=== PATIENT | female | born 1995 | race Caucasian/White ===

== ENCOUNTER → 2016-12-23 | Outpatient (CLI) | payer BC ==
[~2016-12-23] MED LIST: AMOX500C2 PO; BIRTH CONTROL PO; CEPH500C PO; HYDR-3454 PO
--- OUTSIDE RECORDS SUMMARY | 2016-12-23 10:35 | XMS REPORT | Continuity of Care Document ---
Author Author [facility] Organization [facility] Address Unknown Phone Unavailable Care Team Providers Care Body Joiner Name Role Phone [place], [facility] PCP Insurance Providers Payer Name Policy Number Subscriber Name Relationship [facility] [id number] Cb Dorsey 18 Father Advance Directives Directive Response Recorded Date/Time Advance Directives No 11/14/14 6:43am Health Care Power of Professional Model No 11/14/14 6:43am Organ Donor Yes 11/14/14 6:43am Resuscitation Status Full Code 11/14/14 6:43am Problems No known problems or medical conditions. Medications Medication Dose Route Sig Days/Qty Instructions Order Date Discontinued Date Status Amoxicillin 2 Each PO TWICE A DAY 40 Qty 03/05/14 11/07/14 Discontinued [ Control] 1 Tab PO DAILY 11/07/14 11/14/14 Discontinued Cephalexin Monohydrate (Keflex) 1 Cap PO THREE TIMES A DAY 21 Qty 11/14 Active Hydrocodone Bit/Acetaminophen 1-2 Tab PO Q4-6HR PRN PAIN 30 Qty Active Social History Social History Problem Response Recorded Date/Time Alcohol Use Denies Use 03/04/2014 11:29pm Recreational Drug Use No 03/04/2014 11:29pm Recent Foreign Travel No 11/14/2014 6:43am Smoking Status Never a Smoker 11/14/2014 6:44am Query Response Start Date Stop Date Smoking Status Never a Smoker Hospital Discharge Instructions No hospital discharge instructions. Plan of Care No plan of care. Functional Status No functional status results. Allergies, Adverse Reactions, Alerts Allergen Type Severity Reaction Status Last Updated No Known Drug Allergies Active 03/05/14 Immunizations No immunization records. Vital Signs Acute Vital Signs Vital Response Date/Time Temperature (Fahrenheit) 98.4 degrees F (97.6 - 99.5) Temperature (Calculated Celsius) 36.30206 degrees C (36.4 - 37.5) Temperature Source Temporal Pulse Rate (adult) 88 bpm (60 - 90) Respiratory Rate 16 bpm (12 - 24) O2 Sat by Pulse Oximetry 100 % (88 - 100) Blood Pressure 122/70 mm Hg Blood Pressure 122/71 mm Hg Pain Pain Intensity 4 Pain Pain Intensity 3 Height (Feet) 5 feet Height (Inches) 5.00 inches Height (Calculated Centimeters) 165.354153 cm Weight (Pounds) 125 pounds Weight (Calculated Grams) 36659.047 gm Weight (Calculated Kilograms) 56.179591 kilograms Height 5 ft 5 in Weight 125 lb Body Mass Index 20.8 kg/m^2 Results No known relevant diagnostic tests, laboratory data and/or discharge summary. Procedures Procedure Status Date Provider(s) Reconstruction of posterior tibial tendon with excision of accessory navicular bone completed 11/14/14 LINDA MATIAS DPJuwan Encounters Encounter Location Date/Time Registered Surgical Day Care [facility] 11/14/14 6:00am Registered Clinic [facility] 11/07/14 12:25pm
--- NOTE | 2016-12-23 11:28 | Diagnostic Imaging Report ---
EXAMINATION: Right breast ultrasound. INDICATION: Right breast mass. TECHNIQUE: All four quadrants and the retroareolar region were examined on this study. FINDINGS: The right breast was scanned and, at the 10 o'clock zone 8 cm from the nipple, a focal lesion was seen which corresponds to a mass measuring 2 x 1.2 x 1.5 cm with lobulated and mild irregularity of its borders seen. It is slightly heterogenous with internal vascularity seen. No other mass is identified in the rest of the breast. The findings and biopsy recommendations were discussed personally with the patient and her mom just prior to this dictation. IMPRESSION: There is 2 cm indeterminate mass at the 10 o'clock zone 8 cm from the nipple. 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 Some atypical features are seen, however, and an ultrasound-guided biopsy would be recommended. The report was faxed to the office of BERTHA Alcala, by [email or web address]@11:15 AM. ACR BI-RADS Category 4B: Intermediate suspicion of malignancy. Result letter will be mailed to the patient. Dictated by: Dictated on workstation # [id number]
== END ==
LOC: RAD 10:31
PROVIDERS: ATTEND Nurse Practitioner Family
DX: N63 Unspecified lump in breast (principal)
CPT/HCPCS: 76641

== ENCOUNTER → 2016-12-27 | Outpatient (CLI) | payer BC ==
[~2016-12-27] VITALS: Ht 165.1 cm; Wt 72.6 kg
[~2016-12-27] MED LIST changes: +LIDOCAINE 1% INJ 20 ML (XYLOCAINE) VIAL INJ ONE; +LIDOCAINE 1% INJ 20 ML (XYLOCAINE) VIAL ONE
--- OUTSIDE RECORDS SUMMARY | 2016-12-27 07:38 | XMS REPORT | Continuity of Care Document ---
Author Author [facility] Organization [facility] Address Unknown Phone Unavailable Care Team Providers Care Employment Programs Analyst Name Role Phone [place], [facility] PCP Insurance Providers Payer Name Policy Number Subscriber Name Relationship [facility] [id number] Cb Dorsey 18 Father Advance Directives Directive Response Recorded Date/Time Advance Directives No 11/14/14 6:43am Health Care Power of Green Jobs Trainer No 11/14/14 6:43am Organ Donor Yes 11/14/14 [...] F (97.6 - 99.5) Temperature (Calculated Celsius) 36.45119 degrees C (36.4 - 37.5) Temperature Source Temporal Pulse Rate (adult) 88 bpm (60 - 90) Respiratory Rate 16 bpm (12 - 24) O2 Sat by Pulse Oximetry 100 % (88 - 100) Blood Pressure 122/70 mm Hg Blood Pressure 122/71 mm Hg Pain Pain Intensity 4 Pain Pain Intensity 3 Height (Feet) 5 feet Height (Inches) 5.00 inches Height (Calculated Centimeters) 165.671495 cm Weight (Pounds) 125 pounds Weight (Calculated Grams) 55503.047 gm Weight (Calculated Kilograms) 56.193360 kilograms Height 5 ft 5 in Weight 125 lb Body Mass Index 20.8 kg/m^2 Results No known relevant diagnostic tests, laboratory data and/or discharge summary. Procedures Procedure Status Date Provider(s) Reconstruction of posterior tibial tendon with excision of accessory navicular bone completed 11/14/14 LINDA MATIAS DPJuwan Encounters Encounter Location Date/Time Registered Surgical Day Care [facility] 11/14/14 6:00am Registered Clinic [facility] 11/07/14 12:25pm
[2016-12-27 07:47] VITALS: BP 118/72
--- NOTE | 2016-12-27 09:13 | Diagnostic Imaging Report ---
EXAMINATION: Ultrasound-guided biopsy of a breast mass. A metallic clip placed to abdi biopsy site. INDICATION: Right breast mass. CONSENT: Informed consent was obtained from the patient. The risks, benefits, potential complications and alternatives were reviewed and all questions answered to the patient's satisfaction. FINDINGS: Ultrasound images demonstrate a right breast mass at 10:00 zone 8 cm from the nipple. PROCEDURE: After sterile preparation and draping, 1% lidocaine was utilized for local anesthesia. A 13-gauge guide needle was introduced under live ultrasound guidance to the level of the lesion. Good needle position was documented with ultrasound images. 14-gauge biopsy needle was utilized and core biopsies were performed. Multiple samples were obtained and sent to pathology. A metallic clip was placed to abdi the site of the biopsy. A subsequent mammogram is performed and confirms the proper positioning of the clip. The patient tolerated the procedure well with no immediate complications. IMPRESSION: Successful ultrasound-guided core biopsy of right 10:00 breast mass. Dictated by: Dictated on workstation # [id number]
== END ==
LOC: RAD 07:35
PROVIDERS: ATTEND Nurse Practitioner Family
DX: D24.1 Benign neoplasm of right breast (principal)
CPT/HCPCS: 19083; 88305